=== PATIENT | female | born 1960 | race African-American/Black ===

== ENCOUNTER 2019-10-20 06:05 | Day surgery (SDC) | payer OTHER ==
[2019-10-19 14:13] VITALS: BMI 45.1
[2019-10-20] MEDS ORDERED: EPINEPHrine 1:1,000 1 MG/1 ML - 30ML VIAL (INJECTION) ONE (07:39)
[2019-10-20] MEDS ORDERED: DEXAMETHASONE SOD PHOSPHATE 4 MG/1 ML VIAL ONE (07:40)
[2019-10-20] MEDS ORDERED: ceFAZolin SODIUM 1 GM VIAL ONE ×2 (07:40→09:09)
[2019-10-20] MEDS ORDERED: KETOROLAC TROMETHAMINE 30 MG/1 ML VIAL ONE (07:40)
[2019-10-20] MEDS ORDERED: SUCCINYLCHOLINE CHLORIDE 200 MG/10 ML SYRINGE ONE (07:42)
[2019-10-20] MEDS ORDERED: PROPOFOL 20 ML ONE (07:42)
[2019-10-20] MEDS ORDERED: ONDANSETRON 4 MG/2 ML VIAL ONE (07:42)
[2019-10-20] MEDS ORDERED: MIDAZOLAM HCL 2 MG/2 ML SINGLE DOSE VIAL ONE (08:08)
[2019-10-20] MEDS ORDERED: LIDOCAINE 1% P/F 10 MG/ML VIAL ONE (08:09)
[2019-10-20] MEDS ORDERED: ROPIVACAINE HCL 0.5% 30ML VIAL ONE (08:09)
[2019-10-20] MEDS ORDERED: ROCURONIUM BROMIDE 50 MG/5 ML SYRINGE ONE (08:28)
[2019-10-20] MEDS ORDERED: NEOSTIGMINE METHYLSULFATE 0.5 MG/ML - 10 ML MDV ONE (09:31)
[2019-10-20] MEDS ORDERED: GLYCOPYRROLATE 0.2 MG/1 ML VIAL ONE (09:31)
[2019-10-20] MEDS ORDERED: ONDANSETRON 4 MG/2 ML VIAL IVPUSH PRN (10:33)
[2019-10-20] MEDS ORDERED: LACTATED RINGERS SOLUTION 1,000 ML IV SCH (10:45)
[2019-10-20 12:11] VITALS: TEMP 98
[2019-10-20 12:19] VITALS: PULSE 104
[2019-10-20 16:10] VITALS: BP 126/84
--- NOTE | 2019-10-20 16:33 | OP ---
DATE OF OPERATION: 10/20/2019 SURGEON: Nicholas Eisenberg MD [employer] OPERATOR: KAROL Connors PREOPERATIVE DIAGNOSES: 1. Right shoulder rotator cuff tear. 2. Right shoulder adhesive capsulitis. 3. Right shoulder impingement syndrome. 4. Right shoulder acromioclavicular joint disease. 5. Right shoulder superior labral tear, anterior-posterior with synovitis. POSTOPERATIVE DIAGNOSES: 1. Right shoulder rotator cuff tear. 2. Right shoulder adhesive capsulitis. 3. Right shoulder impingement syndrome. 4. Right shoulder acromioclavicular joint disease. 5. Right shoulder superior labral tear, anterior-posterior with synovitis. PROCEDURES: 1. Right shoulder arthroscopy with arthroscopic rotator cuff repair; CPT code 35225 2. Right shoulder arthroscopy with lysis of extensive adhesions; CPT code 86765 3. Right shoulder arthroscopy with subacromial decompression; CPT code 52667 4. Right shoulder arthroscopy with resection of clavicle, acromioclavicular joint; CPT code 85396 5. Right shoulder arthroscopy with debridement; CPT code 77926 FINDINGS: 1. Glenohumeral synovitis with adhesions and scar tissue. 2. Central grade 2 to 3 cartilage injury, glenoid and humerus cartilage changes most pronounced along the anterior glenoid and humerus. 3. Superior labral tear, anterior-posterior, type 1. 4. Partial biceps tear, 10%. 5. Full-thickness anterior supraspinatus tear/rotator cuff. 6. Type 3 acromion with large anterior spur, subacromial space. 7. . 8. Full-thickness supraspinatus tear. REPAIR TYPE: Three mattress sutures were placed into the supraspinatus and secured to a bleeding bone bed with two anterior sutures placed in one anchor and another posterior suture placed on the next. PROCEDURE: Informed consent was obtained. The patient was taken to the operating room where the upper extremity was prepped and draped in a sterile fashion. The shoulder was manipulated for a full range of motion. Posterior incision portal was made and directed to glenohumeral joint. Under direct visualization, an anterior incision and portal was made. Extensive synovitis, as well as chondral injuries throughout the glenohumeral joint were debrided and removed. Any identified labral injuries, including superior labral tear, anterior and posterior, and anterior labrum torn portions were removed as well. Rotator cuff was visualized and noted to have full-thickness tear. The edges were debrided. Posterior incision portal was redirected to subacromial space where a lateral incision portal was made. Excessive and thickened scar tissue noted throughout the subacromial space, including bursal and scar tissue were removed. The type 2 acromion was converted into a flattened type 1 using a bertha for subacromial decompression. Distal inferior spur at the distal clavicle was also debrided with the use of accessory portal in the AC joint. The edges of the rotator cuff were identified. Sutures were placed into the rotator cuff and secured using anchors throughout the greater tuberosity. Prior to securing, a bleeding bed was made using a small bertha, creating a bleeding surface of the rotator cuff insertion. The shoulder was then drained. A single suture was placed on all portals and a sterile dressing was placed. The patient was transferred to the recovery room without complication. ADDENDUM: Please note, extensive spurring along the anterior acromion was debrided with removal of the spur, preventing impingement upon the newly repaired rotator cuff. The PA listed above was present and assisted at surgery. Their presence was absolutely medically necessary for the completion of the procedure. They helped hold the arthroscopy, pass instruments (and implants when indicated) and the procedure could not have been completed without their assistance. NICHOLAS EISENBERG M.D. [id number]
--- NOTE | 2019-10-24 15:01 | PATH ---
Surgical Pathology Report Patient Name: FRANCESCO CHOI Med. Rec. #: [id number] /Age/Gender: 1960 (Age: 59) / F Account: [id number] Location: [facility] Taken: 10/20/2019 Received: 10/20/2019 Reported: 10/24/2019 Physicians: Nicholas Trinh M.D. Specimen(s) Received RIGHT SHOULDER SHAVING Clinical History Right shoulder impingement syndrome Final Diagnosis RIGHT SHOULDER, ARTHROSCOPIC SHAVING: PORTIONS OF SYNOVIUM, CARTILAGE, SKELETAL MUSCLE AND BONE CONSISTENT WITH ARTHROSCOPIC SHAVINGS. Electronically Signed Carlos Severino M.D. Gross Description Received in formalin, labeled "right shoulder shavings," is a 4.6 x 4.5 x 0.3 cm. aggregate of [place]-yellow soft tissue fragments. A real estate representative portion is submitted in one cassette. /10/23/2019 saudi10/23/2019
== END 2019-10-20 15:40 | disposition home or self-care (01) ==
LOC: FASU 06:05
PROVIDERS: ATTEND Orthopaedic Surgery
PROC: 0RNJ4ZZ Release Right Shoulder Joint, Percutaneous Endoscopic Approach (ICD-10-PCS; 2019-10-20)
PROC: 0PB94ZZ Excision of Right Clavicle, Percutaneous Endoscopic Approach (ICD-10-PCS; 2019-10-20)
PROC: 0RBJ4ZZ Excision of Right Shoulder Joint, Percutaneous Endoscopic Approach (ICD-10-PCS; 2019-10-20)
PROC: 0LQ14ZZ Repair Right Shoulder Tendon, Percutaneous Endoscopic Approach (ICD-10-PCS; principal; 2019-10-20 09:30)
DX: M75.121 Complete rotator cuff tear or rupture of right shoulder, not specified as traumatic (principal); M75.01 Adhesive capsulitis of right shoulder; M75.41 Impingement syndrome of right shoulder; M19.011 Primary osteoarthritis, right shoulder; S43.431A Superior glenoid labrum lesion of right shoulder, initial encounter; X58.XXXA Exposure to other specified factors, initial encounter; Y93.9 Activity, unspecified; Y92.9 Unspecified place or not applicable; M65.811 Other synovitis and tenosynovitis, right shoulder
CPT/HCPCS: 82962; 88304-TC; 94760

== ENCOUNTER 2022-12-25 06:07 | Day surgery (SDC) | payer OTHER ==
[2022-12-17 16:44] VITALS: BMI 45.1
[2022-12-25] MEDS ORDERED: MIDAZOLAM HCL 2 MG/2 ML SINGLE DOSE VIAL ONE ×3 (07:10→08:36)
[2022-12-25] MEDS ORDERED: PROPOFOL 40 ML ONE (07:10)
[2022-12-25] MEDS ORDERED: EPINEPHrine 1:1,000 1,000 MCG/ML ML ONE (07:20)
[2022-12-25] MEDS ORDERED: ROPIVACAINE HCL 0.5% 30ML VIAL ONE (07:27)
[2022-12-25] MEDS ORDERED: DEXAMETHASONE SOD PHOSPHATE/PF 10 MG/ML SDV ONE (07:27)
[2022-12-25] MEDS ORDERED: DEXAMETHASONE SOD PHOSPHATE 4 MG/1 ML VIAL ONE (08:27)
[2022-12-25] MEDS ORDERED: CLINDAMYCIN PHOSPHATE 900 MG/6 ML VIAL IVPB ONE (08:27)
[2022-12-25] MEDS ORDERED: ONDANSETRON 4 MG/2 ML VIAL ONE (08:27)
[2022-12-25] MEDS ORDERED: ONDANSETRON 4 MG/2 ML VIAL IVPUSH PRN (09:34)
[2022-12-25] MEDS ORDERED: LACTATED RINGERS SOLUTION 1,000 ML IV SCH (09:45)
[2022-12-25 10:26] VITALS: RESP 16
[2022-12-25 11:00] VITALS: TEMP 97.4
[2022-12-25 11:03] VITALS: BP 126/51; PULSE 90
== END 2022-12-25 11:05 | disposition home or self-care (01) ==
LOC: FASU 06:07
PROVIDERS: ATTEND Orthopaedic Surgery
PROC: 0PBB4ZZ Excision of Left Clavicle, Percutaneous Endoscopic Approach (ICD-10-PCS; 2022-12-25)
PROC: 0RNK4ZZ Release Left Shoulder Joint, Percutaneous Endoscopic Approach (ICD-10-PCS; principal; 2022-12-25 08:41)
DX: M75.102 Unspecified rotator cuff tear or rupture of left shoulder, not specified as traumatic (principal); M75.02 Adhesive capsulitis of left shoulder; M75.42 Impingement syndrome of left shoulder; M19.012 Primary osteoarthritis, left shoulder; M65.812 Other synovitis and tenosynovitis, left shoulder; S43.432A Superior glenoid labrum lesion of left shoulder, initial encounter; X58.XXXA Exposure to other specified factors, initial encounter; Y93.9 Activity, unspecified; Y92.9 Unspecified place or not applicable
CPT/HCPCS: 82962; 94760; C1713